=== PATIENT | female | born 1960 | race American Indian/Alaskan Native ===

== ENCOUNTER 2017-04-18 12:40 | Outpatient (CLI) | payer MEDICAID ==
[2017-04-18 13:13] LABS: Hematocrit 40.1 % (30.3-42.9); Mean Corpuscular HGB Conc 32 % (30-34); Mean Corpuscular Hemoglobin 31 pg (28-32); Mean Corpuscular Volume 94 fl (79-97); Platelet Count 204 K/mm3 (140-440); Red Blood Count 4.25 M/mm3 (3.65-5.03); Red Cell Distribution Width 13.4 % (13.2-15.2)
[2017-04-18 13:37] LABS: Alanine Aminotransferase 32 units/L (7-56); Albumin 4.1 g/dL (3.9-5); BUN/Creatinine Ratio 13; Blood Urea Nitrogen 13 mg/dL (7-17); Calcium 9.3 mg/dL (8.4-10.2); Chol/HDL Ratio 2.63 %; HDL Cholesterol 72 mg/dL (40-59); Hemolysis Index 2; LDL Cholesterol,Direct 113 mg/dL (50-130)
--- NOTE | 2017-04-18 13:40 | XRay Report ---
Chest 2 views: History: Asthma. Findings: Borderline cardiomegaly. Trachea is midline. No consolidation, pneumothorax or pleural effusion. Impression: Cardiomegaly. No acute changes.
--- NOTE | 2017-04-18 14:08 | Cat Scan Report ---
CT scan of sinuses: History: Sinusitis. Findings: The frontal, maxillary, ethmoid and sphenoid sinuses are well pneumatized. The wall appears intact. Mucosal thickening is noted of the right maxillary sinus. There is retention cyst or polyp noted at the inferior medial aspect of the right maxillary sinus measuring 1.4 cm in diameter. Nasal septum is in midline. The turbinates appears unremarkable. The osteomeatal complex is patent. Impression: Sinus disease as detailed above.
== END 2017-04-18 12:41 | disposition home or self-care (01) ==
LOC: CT 12:40
PROVIDERS: ATTEND Internal Medicine
DX: J01.90 Acute sinusitis, unspecified (principal); I51.7 Cardiomegaly; J45.909 Unspecified asthma, uncomplicated; R79.89 Other specified abnormal findings of blood chemistry
CPT/HCPCS: 36415; 70486; 71046; 80053; 80061; 82785; 84436; 84443; 85027; 86038; 86618